=== PATIENT | male | born 1940 | race Two or more races ===

== ENCOUNTER 2021-10-18 06:10 | Inpatient (IN) | payer OTHER ==
[~2021-10-18] VITALS: Ht 182.9 cm; Wt 90.0 kg
[2021-10-18] MEDS ORDERED: MORPHINE SULFATE 4 MG/ML SYR/VIAL IV ONE (06:45)
[2021-10-18] MEDS ORDERED: methylPREDNISolone SOD SUCC 125 MG/2 ML VL IV ONE (06:45)
[2021-10-18] MEDS ORDERED: ONDANSETRON HCL 4 MG/2 ML VIAL IV ONE (06:45)
[2021-10-18 07:16] LABS: Basophils # (auto) 0.1 10 ^3/uL (0-0.2); Basophils % (auto) 0.8 % (0.0-2.0); Eosinophils # (auto) 0.1 10 ^3/uL (0-0.8); Eosinophils % (auto) 1.3 % (0.0-7.0); Hemoglobin 14.5 g/dL (13.5-17.5); Lymphocytes # (auto) 1.3 10 ^3/uL (0.4-5.4); Lymphocytes % (auto) 13.7 % (10.0-50.0); Mean Corpuscular Hemoglobin 30.4 pg (28.0-32.0); Mean Corpuscular Volume 92.3 fL (80.0-100.0); Monocytes # (auto) 0.8 10 ^3/uL (0-1.3); Monocytes % (auto) 8.8 % (0.0-12.0); Neutrophils # (auto) 7.2 10 ^3/uL (1.6-8.6); Neutrophils % (auto) 75.4 % (37.0-80.0); Red Blood Cells 4.77 10^6/uL (4.5-5.90); Red Cell Distribution Width 15.7 % (11.8-14.3); White Blood Cell 9.6 10^3/uL (4.4-10.8)
[2021-10-18 07:33] LABS: Albumin 3.1 g/dL (3.4-5.0); BUN/Creatinine Ratio 9.2; Calcium 6.7 mg/dL (8.5-10.1); Potassium 3.7 mmol/L (3.5-5.1)
[2021-10-18 07:36] LABS: Bilirubin, Total 0.8 mg/dL (0.2-1.0)
[2021-10-18 08:19] LABS: Magnesium 0.5 mg/dL (1.6-2.6)
[2021-10-18] MEDS ORDERED: MAGNESIUM SULFATE 1GM/100ML 100 ML IV ONE ×2 (08:45→16:05)
[2021-10-18] MEDS ORDERED: levoFLOXacin 500MG 100 ML IV SCH (10:30)
[2021-10-18] MEDS ORDERED: NITROGLYCERIN 0.4 MG SL TAB SL PRN (10:45)
[2021-10-18] MEDS ORDERED: MORPHINE SULFATE INJ 2 MG/ml SYRG IV PRN (10:45)
[2021-10-18 10:52] VITALS: BP 120/70
[2021-10-18] MEDS: IPRATROPIUM BROM 0.5 MG/2.5ML INH SOL NEB SCH ×2 (11:14→19:44)
[2021-10-18] MEDS: ALBUTEROL SULF 2.5 MG/0.5ML(0.5%) NEB SOLN NEB SCH ×2 (11:14→19:44)
[2021-10-18] MEDS: MAGNESIUM SULFATE 1GM/100ML 100 ML IV SCH ×3 (12:45→16:07)
[2021-10-18 19:36] LABS: Calcium 6.9 mg/dL (8.5-10.1); Magnesium 1.6 mg/dL (1.6-2.6); Potassium 4.2 mmol/L (3.5-5.1)
[2021-10-18 22:30] VITALS: BP 131/67
[2021-10-19 05:00] VITALS: BP 106/58
[2021-10-19 05:23] LABS: BUN/Creatinine Ratio 14.1; Calcium 6.7 mg/dL (8.5-10.1); Magnesium 1.4 mg/dL (1.6-2.6); Phosphorus 2.1 mg/dL (2.5-4.90); Potassium 4.7 mmol/L (3.5-5.1); Uric Acid 6.4 mg/dL (3.5-7.2)
[2021-10-19] MEDS: IPRATROPIUM BROM 0.5 MG/2.5ML INH SOL NEB SCH ×3 (06:57→19:11)
[2021-10-19] MEDS: ALBUTEROL SULF 2.5 MG/0.5ML(0.5%) NEB SOLN NEB SCH ×3 (06:57→19:11)
[2021-10-19 08:00] VITALS: BP 105/54
[2021-10-19 09:18] VITALS: BP 105/54
[2021-10-19] MEDS: DOXYCYCLINE 100MG/250ML 250 ML IV SCH ×2 (10:07→22:26)
[2021-10-19] MEDS: ACETAMINOPHEN 325 MG TAB PO PRN (11:43)
[2021-10-19] MEDS ORDERED: REGADENOSON 0.4 MG/5 ML SYRG IV ONE (12:20)
[2021-10-19] MEDS ORDERED: CALCIUM GLUC 1,000mg/50ml-NS 50 ML IV ONE (12:30)
[2021-10-19] MEDS ORDERED: SODIUM PHOSPHATES 20 MEQ in SODIUM CHL 0.9% 100 ML IV ONE ×2 (12:30)
[2021-10-19] MEDS ORDERED: MAGNESIUM SULFATE 1GM/100ML 100 ML IV SCH (13:00)
[2021-10-19 13:17] VITALS: BP 109/53
[2021-10-19] MEDS: MAGNESIUM SULFATE 1GM/100ML 100 ML IV SCH ×2 (15:45→17:31)
[2021-10-19 17:02] VITALS: BP 115/64
[2021-10-19] MEDS ORDERED: MAGNESIUM SULFATE 1GM/100ML 100 ML IV ONE (17:25)
[2021-10-19] MEDS: CALCIUM GLUC 1,000mg/50ml-NS 50 ML IV SCH ×2 (20:30→21:32)
[2021-10-19 22:00] VITALS: BP 110/61
[2021-10-19] MEDS: MAGNESIUM OXIDE 400 MG TAB PO SCH (22:24)
[2021-10-19] MEDS: HYDROcodone-ACET 5/325MG TAB PO PRN (23:21)
[2021-10-20] VITALS (7 sets, daily range): BP systolic 106–118; BP diastolic 61–81
[2021-10-20] MEDS: PANTOPRAZOLE 40 MG TAB PO SCH ×2 (02:01→10:10)
[2021-10-20] MEDS: ACETAMINOPHEN 325 MG TAB PO PRN (02:10)
[2021-10-20] MEDS: ALBUTEROL SULF 2.5 MG/0.5ML(0.5%) NEB SOLN NEB SCH ×3 (06:46→19:29)
[2021-10-20] MEDS: IPRATROPIUM BROM 0.5 MG/2.5ML INH SOL NEB SCH ×3 (06:46→19:29)
[2021-10-20] MEDS ORDERED: REGADENOSON 0.4 MG/5 ML SYRG IV ONE (07:45)
[2021-10-20] MEDS: MAGNESIUM OXIDE 400 MG TAB PO SCH (10:10)
[2021-10-20] MEDS: DOXYCYCLINE 100MG/250ML 250 ML IV SCH (10:10)
[2021-10-20] MEDS: HYDROcodone-ACET 5/325MG TAB PO PRN (10:13)
[2021-10-20 12:52] LABS: Urine Bacteria FEW /hpf (None Seen); Urine Blood Negative /uL (Negative); Urine Specific Gravity 1.007 (1.001-1.035); Urine WBC 2 /hpf (0 - 3)
[2021-10-20 13:00] LABS: Protein, Urine 6.5 mg/dL (0.0-11.9)
[2021-10-20] MEDS: MAGNESIUM SULFATE 1GM/100ML 100 ML IV SCH ×2 (15:03→16:03)
[2021-10-20] MEDS ORDERED: MAGN241.4 PO (15:51)
[2021-10-20] MEDS ORDERED: ALBUAER3 IN (15:56)
[2021-10-20] MEDS ORDERED: DOXY-332 PO (15:56)
== END 2021-10-20 19:50 | disposition home or self-care (01) | DRG 194 ==
LOC: ER 06:10 → EDBD 06:10 → TELE 10:32 → TELE-CENTR 22:05
PROVIDERS: ADMIT Internal Medicine; ATTEND Internal Medicine
DX: J18.9 Pneumonia, unspecified organism (principal); J44.0 Chronic obstructive pulmonary disease with (acute) lower respiratory infection; J44.1 Chronic obstructive pulmonary disease with (acute) exacerbation; J96.10 Chronic respiratory failure, unspecified whether with hypoxia or hypercapnia; N17.9 Acute kidney failure, unspecified; E83.42 Hypomagnesemia; E83.51 Hypocalcemia; N18.30 Chronic kidney disease, stage 3 unspecified; Z20.822 Contact with and (suspected) exposure to COVID-19; I48.91 Unspecified atrial fibrillation; I73.9 Peripheral vascular disease, unspecified; E83.39 Other disorders of phosphorus metabolism; I12.9 Hypertensive chronic kidney disease with stage 1 through stage 4 chronic kidney disease, or unspecified chronic kidney disease; I25.2 Old myocardial infarction; Z88.0 Allergy status to penicillin; Z83.3 Family history of diabetes mellitus; Z80.8 Family history of malignant neoplasm of other organs or systems
CPT/HCPCS: 36415; 71045; 76775; 78452; 80048; 80053; 81001; 82306; 82570; 83735; 83880; 83970; 84100; 84156; 84300; 84443; 84484; 84550; 85025; 93005; 93017; 93306; 94640; 96365; 96375; 99291; G0378; J1956; J2405; J3490

== ENCOUNTER 2022-07-27 15:08 | Inpatient (IN) | payer OTHER ==
[~2022-07-27] VITALS: Ht 30.5 cm; Wt 85.3 kg
[~2022-07-27 15:08] MED LIST: ALBUAER3 IN; DOXY-332 PO; MAGN241.4 PO
[2022-07-27] MEDS ORDERED: ACETAMINOPHEN 325 MG TAB PO PRN (22:30)
[2022-07-27] MEDS ORDERED: NITROGLYCERIN 0.4 MG SL TAB SL PRN (22:30)
[2022-07-27] MEDS ORDERED: ONDANSETRON HCL 4 MG/2 ML VIAL IV PRN (22:30)
[2022-07-27] MEDS ORDERED: hydrALAZINE HCL 10 MG TAB PO PRN (22:30)
[2022-07-27] MEDS ORDERED: HYDROcodone-ACET 5/325MG TAB PO PRN (22:30)
[2022-07-27] MEDS ORDERED: MORPHINE SULFATE INJ 2 MG/ml SYRG IV PRN (22:30)
[2022-07-27] MEDS ORDERED: LOP2C PO (22:59)
[2022-07-27] MEDS ORDERED: POTA-180 PO (22:59)
[2022-07-27] MEDS ORDERED: METO25TA36 PO (23:00)
[2022-07-27] MEDS ORDERED: TAMS0.4C36 PO (23:00)
[2022-07-27] MEDS ORDERED: ATOR-47 PO (23:00)
[2022-07-27] MEDS ORDERED: CHOL1TAB30 PO (23:00)
[2022-07-27] MEDS ORDERED: RIV20T PO (23:00)
[2022-07-27] MEDS ORDERED: OMEP-263 PO (23:00)
[2022-07-27] MEDS ORDERED: LORA0.5T20 PO (23:00)
[2022-07-27] MEDS ORDERED: CHOL4POW2 PO (23:00)
[2022-07-28] MEDS ORDERED: ALBUTEROL SULF HFA 90MCG INH 200DOSE IN PRN (02:30)
[2022-07-28 05:00] VITALS: BP 109/70
[2022-07-28] MEDS ORDERED: FUROSEMIDE 40 MG/4 ML VIAL IV SCH (06:00)
[2022-07-28 06:51] LABS: Basophils # (auto) 0 10 ^3/uL (0-0.2); Eosinophils # (auto) 0 10 ^3/uL (0-0.8); Hematocrit 38.3 % (41.0-53.0); Hemoglobin 12.9 g/dL (13.5-17.5); Lymphocytes # (auto) 1.1 10 ^3/uL (0.4-5.4); Lymphocytes % (auto) 7.2 % (10.0-50.0); Mean Corpuscular Hemoglobin 30.1 pg (28.0-32.0); Mean Corpuscular Hgb Conc. 33.7 g/dL (32.0-36.0); Mean Corpuscular Volume 89.4 fL (80.0-100.0); Monocytes # (auto) 1.1 10 ^3/uL (0-1.3); Neutrophils # (auto) 13.1 10 ^3/uL (1.6-8.6); Neutrophils % (auto) 85.8 % (37.0-80.0); Nucleated Red Blood Cells % 0.1 %; Red Blood Cells 4.29 10^6/uL (4.5-5.90); Red Cell Distribution Width 15.5 % (11.8-14.3); White Blood Cell 15.3 10^3/uL (4.4-10.8)
[2022-07-28 07:21] LABS: Calcium 8.4 mg/dL (8.5-10.1); Potassium 3.9 mmol/L (3.5-5.1)
[2022-07-28 07:25] LABS: BUN/Creatinine Ratio 15.8 (10.0-20.0)
[2022-07-28] MEDS ORDERED: ALBUTEROL SULF 2.5 MG/0.5ML(0.5%) NEB SOLN HHN PRN (08:45)
[2022-07-28 09:00] VITALS: BP 115/70
[2022-07-28] MEDS ORDERED: PANTOPRAZOLE 40 MG TAB PO SCH (10:00)
[2022-07-28] MEDS ORDERED: ATORVASTATIN 20 MG TAB PO SCH (10:00)
[2022-07-28] MEDS ORDERED: POTASSIUM CHLORIDE 8 MEQ TAB PO SCH (10:00)
[2022-07-28] MEDS ORDERED: CHOLECALCIFEROL (VITD3) 1,000UNIT=25mCg TAB PO SCH (10:00)
[2022-07-28] MEDS ORDERED: METOPROLOL SUCCINATE XL 50 MG TAB PO SCH (10:00)
[2022-07-28] MEDS ORDERED: TAMSULOSIN HYDROCHLORIDE 0.4 MG CAP PO SCH (10:00)
[2022-07-28] MEDS ORDERED: RIVAROXABAN 20 MG TAB PO SCH (10:00)
[2022-07-28 14:17] VITALS: BP 131/59
[2022-07-28] MEDS: ALPRAZolam 0.5 MG TAB PO SCH ×2 (16:02→16:08)
[2022-07-28] MEDS ORDERED: ALPR0.254 PO (16:11)
[2022-07-28 16:26] VITALS: BP 106/77
[2022-07-28 18:12] VITALS: BP 106/77
== END 2022-07-28 20:40 | disposition home or self-care (01) | DRG 292 ==
LOC: TELE 21:43 → TELE-WESTW 22:35
PROVIDERS: ADMIT Hospitalist; ATTEND Hospitalist
DX: I50.33 Acute on chronic diastolic (congestive) heart failure (principal); J44.1 Chronic obstructive pulmonary disease with (acute) exacerbation; D72.829 Elevated white blood cell count, unspecified; E78.5 Hyperlipidemia, unspecified; F17.210 Nicotine dependence, cigarettes, uncomplicated; F41.9 Anxiety disorder, unspecified; I25.10 Atherosclerotic heart disease of native coronary artery without angina pectoris; I48.0 Paroxysmal atrial fibrillation; N40.0 Benign prostatic hyperplasia without lower urinary tract symptoms; Z80.1 Family history of malignant neoplasm of trachea, bronchus and lung; Z82.49 Family history of ischemic heart disease and other diseases of the circulatory system; Z88.0 Allergy status to penicillin; Z95.5 Presence of coronary angioplasty implant and graft
CPT/HCPCS: 36415; 80048; 84484; 85025; 87081; 93306; G0378

== ENCOUNTER 2023-05-01 07:51 | Day surgery (SDC) | payer OTHER ==
[~2023-05-01] VITALS: Ht 182.9 cm; Wt 87.5 kg
[2023-05-01] VITALS (7 sets, daily range): BP systolic 101–126; BP diastolic 61–76; PULSE 72–84; RESP 12–23; O2SAT 92–100
[~2023-05-01 07:51] MED LIST changes: +ALPR0.254 PO; +APIX5TAB PO; +ATOR-47 PO; +CHOL1TAB30 PO; -DOXY-332 PO; +LORA-1121 PO; +METO25TA36 PO; +NAP500T PO; +OMEP-448 PO; +POTA1TAB61 PO; +TAMS0.4C36 PO
[2023-05-01] MEDS ORDERED: LIDOCAINE 2%HCL (LOCAL ANESTH.) INJ 20ML MDV ONE (09:24)
[2023-05-01] MEDS ORDERED: IODIXANOL 320MG/ML 100ML BTL IV ONE (09:24)
[2023-05-01] MEDS ORDERED: ANGIOMAX 250 MG VIAL IV ONE (09:30)
[2023-05-01] MEDS ORDERED: MIDAZOLAM HCL 2MG/2ML 2ml VIAL (1mg/ml) ONE (09:31)
[2023-05-01] MEDS ORDERED: SODIUM CHL 0.9% 0 ML ONE (09:31)
[2023-05-01] MEDS ORDERED: fentaNYL CITRATE 100 MCG/2 ML VL ONE (09:31)
[2023-05-01] MEDS ORDERED: VERAPAMIL 2.5MG/ML INJ 2ML VIAL IV ONE (09:31)
== END 2023-05-01 13:40 | disposition home or self-care (01) ==
LOC: CATH 07:51
PROVIDERS: ATTEND Internal Medicine
DX: I73.9 Peripheral vascular disease, unspecified (principal); F41.9 Anxiety disorder, unspecified; I50.9 Heart failure, unspecified; J44.9 Chronic obstructive pulmonary disease, unspecified; F17.210 Nicotine dependence, cigarettes, uncomplicated; Z95.5 Presence of coronary angioplasty implant and graft; Z80.1 Family history of malignant neoplasm of trachea, bronchus and lung; Z88.0 Allergy status to penicillin; Z82.49 Family history of ischemic heart disease and other diseases of the circulatory system; Z72.89 Other problems related to lifestyle
CPT/HCPCS: 75716; 76937; 93005; C1760; C1769; C1894; J1644; J2250; J3010; Q9967; 99152

== ENCOUNTER 2023-12-09 23:37 | Inpatient (IN) | payer OTHER ==
[~2023-12-09] VITALS: Ht 182.9 cm; Wt 70.2 kg
[~2023-12-09 23:37] MED LIST changes: +FLUO-125 PO; +HYDR50CA2 PO; +MAGN400T40 PO; +MEGE40TA4 PO; +MIDO5TAB22 PO; +POTA-215 PO; -POTA1TAB61 PO; +RAME8TAB26 PO; -TAMS0.4C36 PO; +TAMS0.4C39 PO; +TRAZ-227 PO
[2023-12-10] VITALS (11 sets, daily range): BP systolic 99–125; BP diastolic 59–84; PULSE 97–115; RESP 17–18; TEMP 97.7–98.4; O2SAT 95–100
[2023-12-10] MEDS ORDERED: ONDANSETRON HCL 4 MG/2 ML VIAL IV PRN
[2023-12-10] MEDS ORDERED: MORPHINE SULFATE INJ 2 MG/ml SYRG IV PRN
[2023-12-10] MEDS ORDERED: MAGNESIUM SULFATE 1GM/100ML 100 ML IV SCH (02:00)
[2023-12-10 06:45] LABS: Eosinophils # (auto) 0 10 ^3/uL (0-0.8); Eosinophils % (auto) 0.5 % (0.0-7.0); Hematocrit 34.7 % (41.0-53.0); Hemoglobin 11.2 g/dL (13.5-17.5); Lymphocytes # (auto) 1.3 10 ^3/uL (0.4-5.4); White Blood Cell 10.3 10^3/uL (4.4-10.8)
[2023-12-10 06:47] LABS: Basophils # (auto) 0.1 10 ^3/uL (0-0.2); Basophils % (auto) 0.6 % (0.0-2.0); Mean Corpuscular Hemoglobin 24.8 pg (28.0-32.0); Mean Corpuscular Hgb Conc. 32.2 g/dL (32.0-36.0); Monocytes # (auto) 0.9 10 ^3/uL (0-1.3); Monocytes % (auto) 8.8 % (0.0-12.0); Neutrophils % (auto) 77.1 % (37.0-80.0); Nucleated Red Blood Cells % 0.1 %; Platelet Count (auto) 248 10^3/uL (140-450); Red Blood Cells 4.51 10^6/uL (4.5-5.90); Red Cell Distribution Width 20.6 % (11.8-14.3)
[2023-12-10 07:08] LABS: Alanine Aminotransferase 14 U/L (7-40); Albumin 3.7 g/dL (3.2-4.8); Alkaline Phosphatase 62 U/L (46-116); Anion Gap 7 (5-15); Aspartate Aminotransferase 18 U/L (13-40); BUN/Creatinine Ratio 20.6 (10.0-20.0); Bilirubin, Total 0.5 mg/dL (0.2-1.0); Blood Urea Nitrogen 27 mg/dL (9-23); Calcium 8.9 mg/dL (8.7-10.4); Carbon Dioxide 21 mmol/L (20-30); Chloride 107 mmol/L (98-107); Glucose 98 mg/dL (74-106); Magnesium 1.4 mg/dL (1.6-2.6); Potassium 3.8 mmol/L (3.5-5.1); Sodium 135 mmol/L (136-145); Total Protein 6.4 g/dL (5.7-8.2)
[2023-12-10 07:41] LABS: INR 1.12 (0.9-1.15); Partial Thromboplastin Time 27.6 SEC (24.5-34.5); Prothrombin Time 11.8 sec (9.3-11.8)
[2023-12-10] MEDS: LORazepam 2MG/ML-1ML VIAL IV ONE (08:52)
[2023-12-10] MEDS: CEFEPIME 1GM/ 50ML 50 ML IV SCH (09:21)
[2023-12-10] MEDS ORDERED: HEPARIN SODIUM (PORCINE) 5000 UNITS/ML 1ML VIAL IV ONE (10:15)
[2023-12-10] MEDS: HEPARIN DRIP/D5W 100UNITS/ML 250 ML IV SCH ×2 (10:52→19:00)
[2023-12-10] MEDS: DIGOXIN (250MCG/ML) 2 ML AMPULE IV ONE (13:19)
[2023-12-10] MEDS: MAGNESIUM SULFATE 1GM/100ML 100 ML IV SCH (13:56)
[2023-12-10] MEDS: D5W/SOD CHL 0.45% 1,000 ML IV SCH (14:10)
[2023-12-10] MEDS: METOPROLOL TARTRATE 1MG/1ML-5ML VIAL IV SCH (14:36)
[2023-12-10] MEDS: IPRATROPIUM BROM 0.5 MG/2.5ML INH SOL NEB SCH (19:21)
[2023-12-11] VITALS (18 sets, daily range): BP systolic 98–126; BP diastolic 39–80; PULSE 81–111; RESP 16–18; TEMP 97.5–98.8; O2SAT 96–100
[2023-12-11 01:33] LABS: INR 1.18 (0.9-1.15); Partial Thromboplastin Time 45.6 SEC (24.5-34.5); Prothrombin Time 12.4 sec (9.3-11.8)
[2023-12-11] MEDS: HEPARIN DRIP/D5W 100UNITS/ML 250 ML IV SCH ×2 (02:02→22:37)
[2023-12-11 07:14] LABS: Basophils # (auto) 0.1 10 ^3/uL (0-0.2); Eosinophils # (auto) 0.3 10 ^3/uL (0-0.8); Hemoglobin 11.1 g/dL (13.5-17.5); Mean Corpuscular Hemoglobin 24.8 pg (28.0-32.0); Neutrophils # (auto) 7.3 10 ^3/uL (1.6-8.6); Red Blood Cells 4.47 10^6/uL (4.5-5.90)
[2023-12-11 07:17] LABS: Basophils % (auto) 0.8 % (0.0-2.0); Eosinophils % (auto) 2.9 % (0.0-7.0); Hematocrit 34.6 % (41.0-53.0); Lymphocytes # (auto) 1.2 10 ^3/uL (0.4-5.4); Lymphocytes % (auto) 12.3 % (10.0-50.0); Mean Corpuscular Volume 77.5 fL (80.0-100.0); Monocytes # (auto) 1.1 10 ^3/uL (0-1.3); Monocytes % (auto) 10.6 % (0.0-12.0); Neutrophils % (auto) 73.4 % (37.0-80.0); Nucleated Red Blood Cells % 0.1 %; Platelet Count (auto) 249 10^3/uL (140-450); Red Cell Distribution Width 20.1 % (11.8-14.3)
[2023-12-11 07:39] LABS: Alanine Aminotransferase 15 U/L (7-40); Albumin 3.6 g/dL (3.2-4.8); Alkaline Phosphatase 60 U/L (46-116); Anion Gap 8 (5-15); Aspartate Aminotransferase 17 U/L (13-40); BUN/Creatinine Ratio 19.3 (10.0-20.0); Bilirubin, Total 0.5 mg/dL (0.2-1.0); Blood Urea Nitrogen 23 mg/dL (9-23); Calcium 8.5 mg/dL (8.7-10.4); Carbon Dioxide 21 mmol/L (20-30); Chloride 109 mmol/L (98-107); Glucose 95 mg/dL (74-106); Potassium 2.9 mmol/L (3.5-5.1); Sodium 138 mmol/L (136-145); Total Protein 6.1 g/dL (5.7-8.2)
[2023-12-11] MEDS ORDERED: OMNIPAQUE 12mg/ml 500ml ORAL SOLUTION PO ONE (08:18)
[2023-12-11 08:21] LABS: INR 1.23 (0.9-1.15); Partial Thromboplastin Time 65.8 SEC (24.5-34.5); Prothrombin Time 12.8 sec (9.3-11.8)
[2023-12-11 16:07] LABS: INR 1.28 (0.9-1.15); Prothrombin Time 13.3 sec (9.3-11.8)
[2023-12-11 16:13] LABS: Partial Thromboplastin Time 70.7 SEC (24.5-34.5)
[2023-12-11 21:03] LABS: INR 1.27 (0.9-1.15); Prothrombin Time 13.2 sec (9.3-11.8)
[2023-12-11 21:07] LABS: Partial Thromboplastin Time 99.2 SEC (24.5-34.5)
[2023-12-11] MEDS ORDERED: HEPARIN DRIP/D5W 100UNITS/ML 250 ML IV SCH (21:30)
[2023-12-12] VITALS (16 sets, daily range): BP systolic 96–122; BP diastolic 51–74; PULSE 93–150; RESP 16–22; TEMP 97.4–98.2; O2SAT 94–100
[2023-12-12 06:23] LABS: Eosinophils # (auto) 0.3 10 ^3/uL (0-0.8); Nucleated Red Blood Cells % 0.1 %
[2023-12-12 06:26] LABS: Basophils # (auto) 0.1 10 ^3/uL (0-0.2); Basophils % (auto) 0.5 % (0.0-2.0); Eosinophils % (auto) 3.2 % (0.0-7.0); Hematocrit 34.9 % (41.0-53.0); Hemoglobin 11.4 g/dL (13.5-17.5); Lymphocytes # (auto) 1.2 10 ^3/uL (0.4-5.4); Mean Corpuscular Hemoglobin 25.2 pg (28.0-32.0); Mean Corpuscular Hgb Conc. 32.6 g/dL (32.0-36.0); Mean Corpuscular Volume 77.3 fL (80.0-100.0); Monocytes # (auto) 1.2 10 ^3/uL (0-1.3); Monocytes % (auto) 11.6 % (0.0-12.0); Neutrophils # (auto) 7.5 10 ^3/uL (1.6-8.6); Neutrophils % (auto) 72.7 % (37.0-80.0); Platelet Count (auto) 230 10^3/uL (140-450); Red Blood Cells 4.51 10^6/uL (4.5-5.90); Red Cell Distribution Width 19.8 % (11.8-14.3); White Blood Cell 10.3 10^3/uL (4.4-10.8)
[2023-12-12 06:33] LABS: Alanine Aminotransferase 16 U/L (7-40); Albumin 3.9 g/dL (3.2-4.8); Alkaline Phosphatase 65 U/L (46-116); Anion Gap 10 (5-15); Aspartate Aminotransferase 16 U/L (13-40); BUN/Creatinine Ratio 16.9 (10.0-20.0); Blood Urea Nitrogen 21 mg/dL (9-23); Carbon Dioxide 18 mmol/L (20-30); Chloride 108 mmol/L (98-107); Glucose 86 mg/dL (74-106); Potassium 2.6 mmol/L (3.5-5.1); Sodium 136 mmol/L (136-145)
[2023-12-12 06:34] LABS: Bilirubin, Total 0.6 mg/dL (0.2-1.0); Total Protein 6.6 g/dL (5.7-8.2)
[2023-12-12 10:32] LABS: Cancer Antigen (CA) 125 11.6 U/mL (Not Estab.)
[2023-12-12 11:28] LABS: INR 1.29 (0.9-1.15); Partial Thromboplastin Time 48.3 SEC (24.5-34.5); Prothrombin Time 13.4 sec (9.3-11.8)
[2023-12-12] MEDS: HEPARIN DRIP/D5W 100UNITS/ML 250 ML IV SCH (12:37)
[2023-12-12] MEDS: PANTOPRAZOLE 40 MG TAB PO SCH (16:38)
[2023-12-12] MEDS ORDERED: MAGNESIUM SULFATE 1GM/100ML 100 ML IV SCH (19:00)
[2023-12-12 19:04] LABS: INR 1.32 (0.9-1.15); Prothrombin Time 13.7 sec (9.3-11.8)
[2023-12-12 19:43] LABS: Partial Thromboplastin Time 84.2 SEC (24.5-34.5)
[2023-12-12 21:28] LABS: Potassium 2.7 mmol/L (3.5-5.1)
[2023-12-12] MEDS: TAMSULOSIN HYDROCHLORIDE 0.4 MG CAP PO SCH (21:33)
[2023-12-12] MEDS: METOPROLOL SUCCINATE XL 50 MG TAB PO SCH (21:33)
[2023-12-12] MEDS: APIXABAN 5 MG TAB PO SCH (21:33)
[2023-12-12 21:35] LABS: Magnesium 1.6 mg/dL (1.6-2.6)
[2023-12-12] MEDS: POTASSIUM EFFERVESENT TAB 25 MEQ PO SCH (22:51)
[2023-12-12] MEDS: POTASSIUM CHLORIDE 40 MEQ, LIDOCAINE 1% (LOCAL ANESTH.) 4 ML in SODIUM CHL 0.9% 250 ML IV ONE (22:51)
[2023-12-12] MEDS: MAGNESIUM SULFATE 1GM/100ML 100 ML IV SCH (23:42)
[2023-12-12] MEDS: MELATONIN 5 MG TAB PO ONE (23:43)
[2023-12-13] VITALS (11 sets, daily range): BP systolic 90–102; BP diastolic 55–64; PULSE 80–99; RESP 16–22; TEMP 97.6–97.9; O2SAT 93–100
[2023-12-13 07:00] LABS: Basophils # (auto) 0 10 ^3/uL (0-0.2); Eosinophils # (auto) 0.4 10 ^3/uL (0-0.8); Hematocrit 33.1 % (41.0-53.0); Hemoglobin 10.6 g/dL (13.5-17.5); Monocytes # (auto) 1.1 10 ^3/uL (0-1.3); Neutrophils # (auto) 6.9 10 ^3/uL (1.6-8.6); White Blood Cell 9.4 10^3/uL (4.4-10.8)
[2023-12-13 07:02] LABS: Basophils % (auto) 0.5 % (0.0-2.0); Eosinophils % (auto) 3.8 % (0.0-7.0); Lymphocytes % (auto) 10.5 % (10.0-50.0); Mean Corpuscular Volume 78.3 fL (80.0-100.0); Monocytes % (auto) 11.7 % (0.0-12.0); Neutrophils % (auto) 73.5 % (37.0-80.0); Platelet Count (auto) 219 10^3/uL (140-450); Red Blood Cells 4.22 10^6/uL (4.5-5.90)
[2023-12-13 07:13] LABS: Red Cell Distribution Width 20.1 % (11.8-14.3)
[2023-12-13 07:32] LABS: Anion Gap 6 (5-15); Carbon Dioxide 18 mmol/L (20-30); Chloride 111 mmol/L (98-107); Sodium 135 mmol/L (136-145)
[2023-12-13 07:33] LABS: Calcium 8.9 mg/dL (8.7-10.4)
[2023-12-13 07:38] LABS: BUN/Creatinine Ratio 15.9 (10.0-20.0); Blood Urea Nitrogen 20 mg/dL (9-23); Glucose 103 mg/dL (74-106)
[2023-12-13 07:39] LABS: Magnesium 2.3 mg/dL (1.6-2.6)
[2023-12-13 08:06] LABS: Cancer Antigen (CA) 125 16.2 U/mL (Not Estab.)
[2023-12-13] MEDS ORDERED: OMEP-448 PO (10:07)
[2023-12-13] MEDS ORDERED: MIDO5TAB22 PO (10:07)
[2023-12-13] MEDS ORDERED: POTASSIUM CHL 20 Meq TABLET PO ONE (10:15)
[2023-12-13] MEDS: POTASSIUM EFFERVESENT TAB 25 MEQ PO ONE (14:30)
== END 2023-12-13 18:22 | DRG 191 ==
LOC: TELE-WESTW 12-10 02:53
PROVIDERS: ADMIT Hospitalist; ATTEND Hospitalist
DX: J44.1 Chronic obstructive pulmonary disease with (acute) exacerbation (principal); I48.20 Chronic atrial fibrillation, unspecified; J96.11 Chronic respiratory failure with hypoxia; J84.9 Interstitial pulmonary disease, unspecified; K56.699 Other intestinal obstruction unspecified as to partial versus complete obstruction; N18.4 Chronic kidney disease, stage 4 (severe); E83.42 Hypomagnesemia; E87.6 Hypokalemia; I73.9 Peripheral vascular disease, unspecified; I71.43 Infrarenal abdominal aortic aneurysm, without rupture; I12.9 Hypertensive chronic kidney disease with stage 1 through stage 4 chronic kidney disease, or unspecified chronic kidney disease; K21.9 Gastro-esophageal reflux disease without esophagitis; F41.9 Anxiety disorder, unspecified; E78.5 Hyperlipidemia, unspecified; F17.210 Nicotine dependence, cigarettes, uncomplicated; Z99.81 Dependence on supplemental oxygen; Z79.01 Long term (current) use of anticoagulants; I25.2 Old myocardial infarction; Z80.1 Family history of malignant neoplasm of trachea, bronchus and lung; Z82.49 Family history of ischemic heart disease and other diseases of the circulatory system; Z88.0 Allergy status to penicillin
CPT/HCPCS: 36415; 71250; 74018; 74176; 80048; 80053; 82378; 82962; 83605; 83735; 84132; 85025; 85610; 85730; 86301; 86304; 93005; 93306; 94640; 97163; G0378; J2001